=== PATIENT | female | born 1965 | race African-American/Black ===

== ENCOUNTER 2017-05-13 09:30 | Emergency (ER) | payer MEDICAID ==
[~2017-05-13] VITALS: Ht 162.6 cm; Wt 94.5 kg
[~2017-05-13 09:30] MED LIST: ALBU8.5H8 IH; BECL8.7A5 IH; HYDR50TA PO; LISI40TA4 PO
[2017-05-13] MEDS ORDERED: AMLO2.5T29 PO (09:44)
[2017-05-13 09:52] LABS: GLUCOSE,POINT OF CARE 128 MG/DL (70-110)
[2017-05-13 12:29] VITALS: BP 123/55
[2017-05-13] MEDS ORDERED: KETOROLAC TROMETHAMINE 10 MG TABLET PO ONE (13:30)
== END 2017-05-13 13:27 | disposition home or self-care (01) ==
LOC: EMS 09:31
DX: M25.562 Pain in left knee (principal); J44.9 Chronic obstructive pulmonary disease, unspecified; F17.210 Nicotine dependence, cigarettes, uncomplicated; I10 Essential (primary) hypertension; E66.9 Obesity, unspecified; Z68.35 Body mass index [BMI] 35.0-35.9, adult
CPT/HCPCS: 82962; 85379; 93970; 99285

== ENCOUNTER 2021-08-11 19:18 | Inpatient (IN) | payer MEDICAID ==
[~2021-08-11] VITALS: Ht 180.3 cm; Wt 99.0 kg
[~2021-08-11 19:18] MED LIST changes: +AMLO2.5T29 PO; -LISI40TA4 PO; +LISI40TA9 PO
[2021-08-11] MEDS ORDERED: ATEN100T92 PO (19:33)
[2021-08-11] MEDS ORDERED: SODIUM CHLORIDE 0.9% 100 ML ONE (19:41)
[2021-08-11] MEDS ORDERED: IOHEXOL 350 MG/ML 100 ML VIAL ONE ×2 (19:41→20:00)
[2021-08-11] MEDS ORDERED: METF-446 PO (19:46)
[2021-08-11] MEDS ORDERED: IPRA3AMP24 NEB (19:46)
[2021-08-11] MEDS ORDERED: LISI1TAB53 PO (19:46)
[2021-08-11] MEDS ORDERED: GLIP5TAB11 PO (19:46)
[2021-08-11] MEDS ORDERED: IPRA4AER IH (19:46)
[2021-08-11] MEDS ORDERED: ASPI-1444 PO (19:46)
[2021-08-11] MEDS ORDERED: ATOR-2 PO (19:46)
[2021-08-11] MEDS ORDERED: INSU100I34 SQ (19:46)
[2021-08-11] MEDS ORDERED: CLOP75TA32 PO (19:46)
[2021-08-11] MEDS ORDERED: INSU100I26 SQ (19:46)
[2021-08-11] MEDS ORDERED: ALBU8HFA IH (19:46)
[2021-08-11] MEDS ORDERED: AMLO10TA55 PO (19:46)
[2021-08-11 21:26] LABS: BASOPHILS % (AUTO) 0.5 % (0.0-2.0); EOSINOPHILS % (AUTO) 2.8 % (1.0-6.0); HEMATOCRIT 42.9 % (36-46); HEMOGLOBIN 14.2 g/dL (12.0-16.0); LYMPHOCYTES # (AUTO) 2.4 K/uL (1.0-4.8); LYMPHOCYTES % (AUTO) 35.9 % (22.0-44.0); MEAN CORPUSCULAR HEMOGLOBIN 27.8 pg (26.0-34.0); MEAN CORPUSCULAR HGB CONC 33.2 G/dL (31.0-37.0); MEAN CORPUSCULAR VOLUME 84 fL (80-100); MONOCYTES # (AUTO) 0.6 K/uL (0.1-1.0); MONOCYTES % (AUTO) 8.5 % (2.0-9.0); NEUTROPHILS # (AUTO) 3.5 K/uL (1.8-7.7); NEUTROPHILS % (AUTO) 52.3 % (40.0-70.0); PLATELET COUNT (AUTO) 252 K/uL (150-450); RED BLOOD CELL COUNT(AUTO) 5.12 MIL/uL (4.00-5.20); RED CELL DISTRIBUTION WIDTH 13.7 % (11.5-14.5)
[2021-08-11 21:45] LABS: ANION GAP 8 mmol/L (8-16); CALCIUM, TOTAL 8.8 mg/dL (8.8-10.5); CARBON DIOXIDE 30 mmol/L (22-29); CHLORIDE 99 mmol/L (98-107); CREATININE 0.72 mg/dL (0.60-1.30); GLOMERULAR FILTR. RATE CALC > 60 mL/min (>60); GLUCOSE,RANDOM 182 mg/dL (70-110); POTASSIUM 3.3 mmol/L (3.5-5.1); SODIUM SERUM 137 mmol/L (136-145); UREA NITROGEN, BLOOD 9 mg/dL (7-18)
[2021-08-11 21:50] LABS: ALANINE AMINOTRANSFERASE 21 U/L (12-78); ALBUMIN 3.2 g/dL (3.4-5.0); ALKALINE PHOSPHATASE 110 U/L (46-116); ASPARTATE AMINOTRANSFERASE 14 U/L (15-37); BILIRUBIN,TOTAL 0.5 mg/dL (0.1-1.0); TOTAL PROTEIN, SERUM 7.6 g/dL (6.4-8.2)
[2021-08-11] MEDS ORDERED: MISC MED-CONVERTED FROM AMBULATORY (Ipratropium/Albuterol Sulfate (Duoneb 2.5-0.5 Mg/3 Ml NEB SCH (22:00)
[2021-08-11] MEDS ORDERED: ONDANSETRON HCL 4 MG/2 ML VIAL IVP PRN (22:00)
[2021-08-11] MEDS ORDERED: POTASSIUM CHL 10 MEQ/WATER 50 ML IV PRN (22:15)
[2021-08-11] MEDS ORDERED: POTASSIUM CHLORIDE 20 MEQ ER TABLET PO PRN (22:15)
[2021-08-11] MEDS ORDERED: NALOXONE HCL 10 MG in DEXTROSE 5%-WATER 240 ML IV PRN (22:30)
[2021-08-11 22:32] LABS: COVID AG,FIA SOURCE NASAL SWAB
[2021-08-11] MEDS ORDERED: SODIUM CHLORIDE 0.9% 1,000 ML ONE (23:22)
[2021-08-11] MEDS: HEPARIN SODIUM,PORCINE 5,000 UNITS/ML VIAL SQ SCH (23:30)
[2021-08-12 04:02] VITALS: BP 145/97
[2021-08-12 06:31] LABS: GLUCOMETER DEV NAME(LOC) 5S.2B; GLUCOSE,POINT OF CARE 205 MG/DL (70-110)
[2021-08-12] MEDS ORDERED: DEXTROSE 50%-WATER 25 GM/50 ML SYRINGE IVP PRN (06:45)
[2021-08-12] MEDS ORDERED: DEXTROSE 5%-0.45% SODIUM CHL 1,000 ML IV ONE (07:45)
[2021-08-12 08:03] VITALS: BP 125/84
[2021-08-12] MEDS ORDERED: ASPIRIN 81 MG DR TABLET PO SCH (09:00)
[2021-08-12] MEDS ORDERED: CLOPIDOGREL BISULFATE 75 MG TABLET PO SCH (09:00)
[2021-08-12] MEDS: AmLODIPine BESYLATE 10 MG TABLET PO SCH (09:00)
[2021-08-12] MEDS: ATENOLOL 100 MG TABLET PO SCH (09:00)
[2021-08-12] MEDS: HEPARIN SODIUM,PORCINE 5,000 UNITS/ML VIAL SQ SCH ×2 (09:10→17:09)
[2021-08-12] MEDS ORDERED: LORazepam 2 MG/ML VIAL IVP ONE (09:15)
[2021-08-12] MEDS ORDERED: IPRATROPIUM BROMIDE 0.5 MG/2.5 ML NEB SOLUTION NEB PRN (11:00)
[2021-08-12] MEDS ORDERED: ALBUTEROL SULFATE 2.5 MG/0.5 ML NEB SOLUTION NEB PRN (11:00)
[2021-08-12] MEDS: INSULIN LISPRO 100 UNITS/ML SQ PRN ×3 (11:52→20:45)
[2021-08-12 11:57] VITALS: BP 162/87
[2021-08-12 12:01] LABS: GLUCOMETER DEV NAME(LOC) 5S.1B; GLUCOSE,POINT OF CARE 223 MG/DL (70-110)
[2021-08-12 15:53] VITALS: BP 151/109
[2021-08-12] MEDS: ACETAMINOPHEN 325 MG TABLET PO PRN (17:31)
[2021-08-12 17:36] LABS: GLUCOMETER DEV NAME(LOC) 5S.2B; GLUCOSE,POINT OF CARE 176 MG/DL (70-110)
[2021-08-12 20:42] VITALS: BP 146/98
[2021-08-12] MEDS: ATORVASTATIN CALCIUM 40 MG TABLET PO SCH (20:42)
[2021-08-12] MEDS: INSULIN GLARGINE,HUM.REC.ANLOG 100 UNITS/ML SQ SCH (20:44)
[2021-08-12 21:26] LABS: GLUCOMETER DEV NAME(LOC) 5S.2B; GLUCOSE,POINT OF CARE 197 MG/DL (70-110)
[2021-08-13 00:45] VITALS: BP 148/96
[2021-08-13] MEDS: ACETAMINOPHEN 325 MG TABLET PO PRN ×2 (04:05→14:53)
[2021-08-13] MEDS: INSULIN LISPRO 100 UNITS/ML SQ PRN ×4 (05:48→20:34)
[2021-08-13 05:56] LABS: GLUCOMETER DEV NAME(LOC) 5S.1B; GLUCOSE,POINT OF CARE 201 MG/DL (70-110)
[2021-08-13 07:24] VITALS: BP 141/90
[2021-08-13] MEDS: ATENOLOL 100 MG TABLET PO SCH (08:20)
[2021-08-13] MEDS: AmLODIPine BESYLATE 10 MG TABLET PO SCH (08:20)
[2021-08-13 11:33] VITALS: BP 152/90
[2021-08-13 13:11] LABS: GLUCOMETER DEV NAME(LOC) 5S.2B; GLUCOSE,POINT OF CARE 195 MG/DL (70-110)
[2021-08-13 16:01] VITALS: BP 150/98
[2021-08-13 20:01] LABS: GLUCOMETER DEV NAME(LOC) 5S.2B; GLUCOSE,POINT OF CARE 229 MG/DL (70-110)
[2021-08-13] MEDS: HYDROCODONE/ACETAMINOPHEN 5-325 MG TABLET PO PRN (20:21)
[2021-08-13] MEDS: ATORVASTATIN CALCIUM 40 MG TABLET PO SCH (20:21)
[2021-08-13 20:27] VITALS: BP 149/86
[2021-08-13] MEDS: INSULIN GLARGINE,HUM.REC.ANLOG 100 UNITS/ML SQ SCH (20:31)
[2021-08-14 00:09] VITALS: BP 134/63
[2021-08-14 01:21] LABS: GLUCOMETER DEV NAME(LOC) 5S.1B; GLUCOSE,POINT OF CARE 233 MG/DL (70-110)
[2021-08-14] MEDS: HYDROCODONE/ACETAMINOPHEN 5-325 MG TABLET PO PRN ×4 (01:30→20:10)
[2021-08-14 04:00] VITALS: BP 129/80
[2021-08-14 05:41] LABS: GLUCOMETER DEV NAME(LOC) 5S.1B; GLUCOSE,POINT OF CARE 208 MG/DL (70-110)
[2021-08-14] MEDS: INSULIN LISPRO 100 UNITS/ML SQ PRN ×4 (05:57→20:20)
[2021-08-14 08:33] VITALS: BP 149/94
[2021-08-14] MEDS: AmLODIPine BESYLATE 10 MG TABLET PO SCH (08:39)
[2021-08-14] MEDS: ACETAMINOPHEN 325 MG TABLET PO PRN (08:39)
[2021-08-14] MEDS: ATENOLOL 100 MG TABLET PO SCH (08:39)
[2021-08-14 09:03] LABS: BASOPHILS % (AUTO) 0.7 % (0.0-2.0); EOSINOPHILS % (AUTO) 1.8 % (1.0-6.0); HEMATOCRIT 42.4 % (36-46); HEMOGLOBIN 14.1 g/dL (12.0-16.0); LYMPHOCYTES # (AUTO) 1.7 K/uL (1.0-4.8); LYMPHOCYTES % (AUTO) 24.2 % (22.0-44.0); MEAN CORPUSCULAR HEMOGLOBIN 27.7 pg (26.0-34.0); MEAN CORPUSCULAR HGB CONC 33.2 G/dL (31.0-37.0); MEAN CORPUSCULAR VOLUME 84 fL (80-100); MONOCYTES # (AUTO) 0.6 K/uL (0.1-1.0); MONOCYTES % (AUTO) 9.1 % (2.0-9.0); NEUTROPHILS # (AUTO) 4.5 K/uL (1.8-7.7); NEUTROPHILS % (AUTO) 64.2 % (40.0-70.0); PLATELET COUNT (AUTO) 236 K/uL (150-450); RED BLOOD CELL COUNT(AUTO) 5.07 MIL/uL (4.00-5.20); RED CELL DISTRIBUTION WIDTH 13.8 % (11.5-14.5)
[2021-08-14 09:09] LABS: ANION GAP 8 mmol/L (8-16); CALCIUM, TOTAL 8.8 mg/dL (8.8-10.5); CARBON DIOXIDE 29 mmol/L (22-29); CHLORIDE 100 mmol/L (98-107); CREATININE 0.78 mg/dL (0.60-1.30); GLOMERULAR FILTR. RATE CALC > 60 mL/min (>60); GLUCOSE,RANDOM 250 mg/dL (70-110); POTASSIUM 3.7 mmol/L (3.5-5.1); SODIUM SERUM 137 mmol/L (136-145); UREA NITROGEN, BLOOD 11 mg/dL (7-18)
[2021-08-14 11:53] VITALS: BP 148/90
[2021-08-14 12:21] LABS: GLUCOMETER DEV NAME(LOC) 5S.2B; GLUCOSE,POINT OF CARE 263 MG/DL (70-110)
[2021-08-14 16:02] VITALS: BP 151/93
[2021-08-14 17:21] LABS: GLUCOMETER DEV NAME(LOC) 5S.1B; GLUCOSE,POINT OF CARE 188 MG/DL (70-110)
[2021-08-14] MEDS: NICOTINE 21 MG/24 HOUR PATCH TD SCH (18:48)
[2021-08-14] MEDS: ATORVASTATIN CALCIUM 40 MG TABLET PO SCH (20:10)
[2021-08-14] MEDS: INSULIN GLARGINE,HUM.REC.ANLOG 100 UNITS/ML SQ SCH (20:19)
[2021-08-14 20:28] VITALS: BP 155/93
[2021-08-15 00:11] LABS: GLUCOMETER DEV NAME(LOC) 5S.2B; GLUCOSE,POINT OF CARE 208 MG/DL (70-110)
[2021-08-15] MEDS: HYDROCODONE/ACETAMINOPHEN 5-325 MG TABLET PO PRN ×3 (01:14→16:06)
[2021-08-15 05:44] VITALS: BP 145/93
[2021-08-15] MEDS: INSULIN LISPRO 100 UNITS/ML SQ PRN ×4 (06:28→20:11)
[2021-08-15 06:41] LABS: GLUCOMETER DEV NAME(LOC) 5S.2B; GLUCOSE,POINT OF CARE 207 MG/DL (70-110)
[2021-08-15] MEDS: AmLODIPine BESYLATE 10 MG TABLET PO SCH (08:30)
[2021-08-15] MEDS: ATENOLOL 100 MG TABLET PO SCH (08:30)
[2021-08-15] MEDS: NICOTINE 21 MG/24 HOUR PATCH TD SCH (08:34)
[2021-08-15 11:40] VITALS: BP 147/96
[2021-08-15 11:51] LABS: GLUCOMETER DEV NAME(LOC) 5S.2B; GLUCOSE,POINT OF CARE 195 MG/DL (70-110)
[2021-08-15 19:57] VITALS: BP 162/95
[2021-08-15] MEDS: INSULIN GLARGINE,HUM.REC.ANLOG 100 UNITS/ML SQ SCH (20:10)
[2021-08-15] MEDS: ACETAMINOPHEN 325 MG TABLET PO PRN (20:11)
[2021-08-15] MEDS: ATORVASTATIN CALCIUM 40 MG TABLET PO SCH (20:11)
[2021-08-16] VITALS (7 sets, daily range): BP systolic 136–155; BP diastolic 71–88
[2021-08-16] MEDS: HYDROCODONE/ACETAMINOPHEN 5-325 MG TABLET PO PRN ×2 (00:41→20:59)
[2021-08-16] MEDS: INSULIN LISPRO 100 UNITS/ML SQ PRN ×4 (06:20→21:01)
[2021-08-16] MEDS: NICOTINE 21 MG/24 HOUR PATCH TD SCH (07:52)
[2021-08-16] MEDS: AmLODIPine BESYLATE 10 MG TABLET PO SCH (07:52)
[2021-08-16] MEDS: ATENOLOL 100 MG TABLET PO SCH (07:52)
[2021-08-16] MEDS: ATORVASTATIN CALCIUM 40 MG TABLET PO SCH (20:59)
[2021-08-16] MEDS: INSULIN GLARGINE,HUM.REC.ANLOG 100 UNITS/ML SQ SCH (21:00)
[2021-08-16] MEDS: DiphenhydrAMINE/ZINC ACET 30 GM CREAM TP SCH (21:03)
[2021-08-17 04:11] VITALS: BP 110/63
[2021-08-17 04:56] LABS: GLUCOMETER DEV NAME(LOC) 5S.1B; GLUCOSE,POINT OF CARE 178 MG/DL (70-110)
[2021-08-17 04:56] LABS: GLUCOMETER DEV NAME(LOC) 5S.1B; GLUCOSE,POINT OF CARE 204 MG/DL (70-110)
[2021-08-17 04:56] LABS: GLUCOMETER DEV NAME(LOC) 5S.1B; GLUCOSE,POINT OF CARE 181 MG/DL (70-110)
[2021-08-17 05:01] LABS: GLUCOMETER DEV NAME(LOC) 5S.1B; GLUCOSE,POINT OF CARE 191 MG/DL (70-110)
[2021-08-17 05:01] LABS: GLUCOMETER DEV NAME(LOC) 5S.1B; GLUCOSE,POINT OF CARE 152 MG/DL (70-110)
[2021-08-17 05:01] LABS: GLUCOMETER DEV NAME(LOC) 5S.2B; GLUCOSE,POINT OF CARE 206 MG/DL (70-110)
[2021-08-17] MEDS: INSULIN LISPRO 100 UNITS/ML SQ PRN ×3 (05:49→20:17)
[2021-08-17] MEDS: AmLODIPine BESYLATE 10 MG TABLET PO SCH (08:07)
[2021-08-17] MEDS: NICOTINE 21 MG/24 HOUR PATCH TD SCH (08:08)
[2021-08-17] MEDS: ATENOLOL 100 MG TABLET PO SCH (08:11)
[2021-08-17] MEDS: DiphenhydrAMINE/ZINC ACET 30 GM CREAM TP SCH ×2 (08:12→20:21)
[2021-08-17 08:15] VITALS: BP 161/85
[2021-08-17 11:42] VITALS: BP 133/78
[2021-08-17 12:02] LABS: GLUCOMETER DEV NAME(LOC) 5S.2B; GLUCOSE,POINT OF CARE 194 MG/DL (70-110)
[2021-08-17 12:02] LABS: GLUCOMETER DEV NAME(LOC) 5S.1B; GLUCOSE,POINT OF CARE 168 MG/DL (70-110)
[2021-08-17 15:43] VITALS: BP 131/81
[2021-08-17 18:21] LABS: GLUCOMETER DEV NAME(LOC) 5S.1B; GLUCOSE,POINT OF CARE 137 MG/DL (70-110)
[2021-08-17 19:33] VITALS: BP 127/77
[2021-08-17] MEDS: ATORVASTATIN CALCIUM 40 MG TABLET PO SCH (20:13)
[2021-08-17] MEDS: INSULIN GLARGINE,HUM.REC.ANLOG 100 UNITS/ML SQ SCH (20:17)
[2021-08-17 23:11] LABS: GLUCOMETER DEV NAME(LOC) 5S.1B; GLUCOSE,POINT OF CARE 179 MG/DL (70-110)
[2021-08-17 23:48] VITALS: BP 138/73
[2021-08-18 03:46] VITALS: BP 139/92
[2021-08-18] MEDS: INSULIN LISPRO 100 UNITS/ML SQ PRN ×4 (05:52→21:00)
[2021-08-18 06:26] LABS: GLUCOMETER DEV NAME(LOC) 5S.2B; GLUCOSE,POINT OF CARE 168 MG/DL (70-110)
[2021-08-18 07:19] VITALS: BP 147/84
[2021-08-18] MEDS: DiphenhydrAMINE/ZINC ACET 30 GM CREAM TP SCH ×2 (09:00→20:44)
[2021-08-18] MEDS: ATENOLOL 100 MG TABLET PO SCH (09:59)
[2021-08-18] MEDS: AmLODIPine BESYLATE 10 MG TABLET PO SCH (09:59)
[2021-08-18] MEDS: NICOTINE 21 MG/24 HOUR PATCH TD SCH (09:59)
[2021-08-18] MEDS: ALBUTEROL SULFATE HFA 90 MCG/PUFF 8 GM INHALER IH PRN ×2 (10:00→18:12)
[2021-08-18 11:26] VITALS: BP 155/89
[2021-08-18] MEDS: HYDROCODONE/ACETAMINOPHEN 5-325 MG TABLET PO PRN ×2 (15:12→21:02)
[2021-08-18 15:15] VITALS: BP 110/74
[2021-08-18 17:07] LABS: GLUCOMETER DEV NAME(LOC) 6S.1B; GLUCOSE,POINT OF CARE 164 MG/DL (70-110)
[2021-08-18 18:51] LABS: GLUCOMETER DEV NAME(LOC) 6N.2; GLUCOSE,POINT OF CARE 163 MG/DL (70-110)
[2021-08-18 20:00] VITALS: BP 118/69
[2021-08-18] MEDS: ATORVASTATIN CALCIUM 40 MG TABLET PO SCH (20:44)
[2021-08-18] MEDS: INSULIN GLARGINE,HUM.REC.ANLOG 100 UNITS/ML SQ SCH (20:59)
[2021-08-18 21:06] LABS: GLUCOMETER DEV NAME(LOC) 6S.1B; GLUCOSE,POINT OF CARE 181 MG/DL (70-110)
[2021-08-19 05:36] VITALS: BP 142/80
[2021-08-19] MEDS: HYDROCODONE/ACETAMINOPHEN 5-325 MG TABLET PO PRN ×2 (06:42→17:13)
[2021-08-19] MEDS: INSULIN LISPRO 100 UNITS/ML SQ PRN ×3 (06:44→20:46)
[2021-08-19 07:02] LABS: GLUCOMETER DEV NAME(LOC) 6N.1; GLUCOSE,POINT OF CARE 171 MG/DL (70-110)
[2021-08-19 07:51] VITALS: BP 140/66
[2021-08-19] MEDS: AmLODIPine BESYLATE 10 MG TABLET PO SCH (08:26)
[2021-08-19] MEDS: ALBUTEROL SULFATE HFA 90 MCG/PUFF 8 GM INHALER IH PRN (08:26)
[2021-08-19] MEDS: DiphenhydrAMINE/ZINC ACET 30 GM CREAM TP SCH ×2 (09:52→20:47)
[2021-08-19] MEDS: ATENOLOL 100 MG TABLET PO SCH (09:52)
[2021-08-19] MEDS: NICOTINE 21 MG/24 HOUR PATCH TD SCH (09:55)
[2021-08-19 15:45] VITALS: BP 125/69
[2021-08-19 19:38] VITALS: BP 149/76
[2021-08-19] MEDS: ATORVASTATIN CALCIUM 40 MG TABLET PO SCH (20:43)
[2021-08-19] MEDS: INSULIN GLARGINE,HUM.REC.ANLOG 100 UNITS/ML SQ SCH (20:46)
[2021-08-19 21:01] LABS: GLUCOMETER DEV NAME(LOC) 6S.1B; GLUCOSE,POINT OF CARE 158 MG/DL (70-110)
[2021-08-20] MEDS: HYDROCODONE/ACETAMINOPHEN 5-325 MG TABLET PO PRN ×3 (01:43→19:39)
[2021-08-20 04:30] VITALS: BP 147/79
[2021-08-20 05:41] LABS: GLUCOMETER DEV NAME(LOC) 6N.1; GLUCOSE,POINT OF CARE 134 MG/DL (70-110)
[2021-08-20 05:41] LABS: GLUCOMETER DEV NAME(LOC) 6N.1; GLUCOSE,POINT OF CARE 143 MG/DL (70-110)
[2021-08-20 08:09] VITALS: BP 136/75
[2021-08-20] MEDS: AmLODIPine BESYLATE 10 MG TABLET PO SCH (08:48)
[2021-08-20] MEDS: ATENOLOL 100 MG TABLET PO SCH (08:48)
[2021-08-20] MEDS: NICOTINE 21 MG/24 HOUR PATCH TD SCH (08:49)
[2021-08-20] MEDS: DiphenhydrAMINE/ZINC ACET 30 GM CREAM TP SCH ×2 (08:55→18:21)
[2021-08-20] MEDS: INSULIN LISPRO 100 UNITS/ML SQ PRN ×2 (12:04→21:31)
[2021-08-20 12:11] LABS: GLUCOMETER DEV NAME(LOC) 6N.1; GLUCOSE,POINT OF CARE 162 MG/DL (70-110)
[2021-08-20 13:30] LABS: APPEARANCE,URINE HAZY (CLEAR); BILIRUBIN,URINE NEGATIVE (NEGATIVE); GLUCOSE, URINE (UA) NEGATIVE (NEGATIVE); KETONES,URINE NEGATIVE (NEGATIVE); LEUKOCYTE ESTERASE ,URINE NEGATIVE (NEGATIVE); NITRATE,URINE NEGATIVE (NEGATIVE); OCCULT BLOOD,URINE NEGATIVE (NEGATIVE); PH,URINE 6.5 (5.0-8.0); PROTEIN,URINE NEGATIVE (NEGATIVE); SPECIFIC GRAVITIY, URINE 1.022 (1.003-1.030); UROBILINOGEN,URINE <=1.0 mg/dL (<=1.0)
[2021-08-20 13:33] LABS: BACTERIA,URINE None Seen /HPF (None Seen); RBC,URINE None Seen /HPF (0-2); WBC,URINE None Seen /HPF (0-5)
[2021-08-20 16:01] VITALS: BP 131/79
[2021-08-20 18:56] LABS: GLUCOMETER DEV NAME(LOC) 6S.1B; GLUCOSE,POINT OF CARE 120 MG/DL (70-110)
[2021-08-20] MEDS: ALBUTEROL SULFATE HFA 90 MCG/PUFF 8 GM INHALER IH PRN (18:56)
[2021-08-20 19:42] VITALS: BP 138/74
[2021-08-20] MEDS: ATORVASTATIN CALCIUM 40 MG TABLET PO SCH (21:29)
[2021-08-20] MEDS: INSULIN GLARGINE,HUM.REC.ANLOG 100 UNITS/ML SQ SCH (21:31)
[2021-08-21] MEDS: HYDROCODONE/ACETAMINOPHEN 5-325 MG TABLET PO PRN ×2 (02:01→09:38)
[2021-08-21 02:36] LABS: GLUCOMETER DEV NAME(LOC) 6N.2; GLUCOSE,POINT OF CARE 145 MG/DL (70-110)
[2021-08-21 04:00] VITALS: BP 114/58
[2021-08-21 07:22] VITALS: BP 128/62
[2021-08-21] MEDS: ATENOLOL 100 MG TABLET PO SCH (09:34)
[2021-08-21] MEDS: AmLODIPine BESYLATE 10 MG TABLET PO SCH (09:34)
[2021-08-21] MEDS: NICOTINE 21 MG/24 HOUR PATCH TD SCH (09:34)
[2021-08-21] MEDS: DiphenhydrAMINE/ZINC ACET 30 GM CREAM TP SCH ×2 (09:35→20:38)
[2021-08-21] MEDS: INSULIN LISPRO 100 UNITS/ML SQ PRN ×2 (12:07→17:12)
[2021-08-21] MEDS: ACETAMINOPHEN 325 MG TABLET PO PRN (15:18)
[2021-08-21 16:08] VITALS: BP 124/69
[2021-08-21 18:15] LABS: COVID AG,FIA SOURCE NASAL SWAB
[2021-08-21 18:33] LABS: GLUCOMETER DEV NAME(LOC) 6S.1B; GLUCOSE,POINT OF CARE 200 MG/DL (70-110)
[2021-08-21 18:33] LABS: GLUCOMETER DEV NAME(LOC) 6S.1B; GLUCOSE,POINT OF CARE 161 MG/DL (70-110)
[2021-08-21 19:30] VITALS: BP 140/94
[2021-08-21] MEDS: ATORVASTATIN CALCIUM 40 MG TABLET PO SCH (20:35)
[2021-08-21] MEDS: INSULIN GLARGINE,HUM.REC.ANLOG 100 UNITS/ML SQ SCH (20:42)
[2021-08-21 21:20] LABS: GLUCOMETER DEV NAME(LOC) 6N.1; GLUCOSE,POINT OF CARE 129 MG/DL (70-110)
== END 2021-08-21 21:35 | DRG 45 ==
LOC: EMS 19:19 → 5S 22:00 → 6N 08-18 10:56
PROVIDERS: ADMIT Internal Medicine; ATTEND Internal Medicine
DX: I63.511 Cerebral infarction due to unspecified occlusion or stenosis of right middle cerebral artery (principal); I69.354 Hemiplegia and hemiparesis following cerebral infarction affecting left non-dominant side; I10 Essential (primary) hypertension; J44.9 Chronic obstructive pulmonary disease, unspecified; E66.9 Obesity, unspecified; E11.65 Type 2 diabetes mellitus with hyperglycemia; Z20.822 Contact with and (suspected) exposure to COVID-19; Z68.31 Body mass index [BMI] 31.0-31.9, adult; E87.6 Hypokalemia; F17.210 Nicotine dependence, cigarettes, uncomplicated; Z79.4 Long term (current) use of insulin; Z68.30 Body mass index [BMI] 30.0-30.9, adult; Z79.899 Other long term (current) drug therapy; Z79.82 Long term (current) use of aspirin
CPT/HCPCS: 51702; 70496; 70498; 70551; 71045; 80048; 80053; 81001; 82948; 82962; 84484; 85025; 85610; 85730; 86850; 86900; 86901; 92507; 92610; 93005; 93306; 93880; 97110; 97112; 97116; 97163; 97166; 97530; 97535; 99291; J1644; J1815; J2060; J3480; J3535; J7030; J7050; Q9967; 36415-L1; 36415-TC; 70450; 70450-TC; J7613